=== PATIENT | male | born 1990 | race Caucasian/White ===

== ENCOUNTER 2024-07-08 08:05 | Emergency (ER) | payer BC, SELFPAY ==
[2024-07-08 08:08] VITALS: BP 157/99
--- NOTE | 2024-07-08 08:33 | ED.GENMED ---
History of Present Illness
General
Chief Complaint: Eye Problems
Source: patient
Exam Limitations: none
Time Seen by Provider: 07/08/24 08:22
Nursing documentation reviewed up to this point in time: agreed with
History of Present Illness
History of Present Illness:
33-year-old male with a history of GERD/gastritis presents for left eye irritation and pain and foreign body sensation after accidentally being struck in the left eye by a branch. 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 Patient says this occurred yesterday and
he irrigated his eye and he felt better for the rest of the day until evening when he started having some irritation and clear tearing. He has mild photophobia this morning, redness, clear tearing and the foreign body sensation. He has tried to
flush out his eye several times. He was not working with metal or wearing eye protection. He does not use contact lenses or glasses
Past History
Past History
ED Past Medical History: GERD
Social History
Tobacco: Non-smoker
Alcohol: None
Review of Systems
Review of Systems
Allergies reviewed?: Yes
All Other Systems: Not applicable
Phy Exam
Physical Exam
Physical Exam:
GENERAL: Alert , in no apparent distress
EYE: pupils equal and reactive, conjunctiva mildly injected, some clear tearing, flipped both eyelids and no foreign bodies visualized, tetracaine applied, fluorescein stain uptake to the eye 1 mm area of abrasion over the inferior cornea at 6:00
just inferior to the pupillary axis, there is no rust ring, EOMs are intact, no corneal ulcerations, no significant tearing
20/25 vision
pupils equal
no hyphema
NECK: Supple
ENT: o/p clr, mmm.
CARDIAC: Regular rate and rhythm .
LUNGS: Clear breath sounds bilaterally, no acute respiratory distress, no wheezes/rales/rhonchi
NEUROLOGICAL: Alert and oriented, no focal neuro deficits
SKIN: Warm and dry, skin intact.
PSYCH: Normal and appropriate interaction.
Course
Orders/Labs/Results
Orders:
Orders
07/08/24 08:26
Tetracaine HCl [Tetracaine 0.5% Ophthalmic Solution] 1 drop .ROUTE .STK-MED ONE
07/08/24 08:31
Erythromycin (Ilotycin) [Erythromycin 0.5% Ophthalmic Ointment] See Dose Instructions OPHTH NOW STA
Vital Signs
Initial and Last Documented VS:
Initial Vital Signs
Temp Pulse Resp BP Pulse Ox
98.7 F 66 18 157/99 100
07/08/24 08:08 07/08/24 08:08 07/08/24 08:08 07/08/24 08:08 07/08/24 08:08
Last Documented Vital Signs
Temp Pulse Resp BP Pulse Ox
98.7 F 62 16 136/93 98
07/08/24 08:08 07/08/24 09:11 07/08/24 09:11 07/08/24 09:11 07/08/24 09:11
MDM/Problems Addressed
Differential Diagnosis Includes:
corneal abrasion, ulceration,, fb
MDM/Problems Addressed:
33 y/o M got hit in the eye with a piece of wood/stick yesterday
washed out with water but still has fb sensation
no vision changes
clear tearing
borderline photophobia
obvious small corneal abrasion lower cornea without fb retained
flipped both lids without fb
no contact lenses
erythromycin ointment
motrin
eye f/u
return preautins.
*Critical Care Note
Total Time (30-74mins, 75-104mins- exclusive of procedures): Not Applicable
ED Attending Note
-
Portions of this chart may have been created with voice recognition software.� Occasional wrong word or��sound alike� substitutions may have occurred due to the inherent limitations of voice recognition software.
Discharge Plan
Departure
Patient Disposition: Home (Routine Discharge)
Date of Disposition: 07/08/24
Time of Disposition: 08:38
Patient with high blood pressure during this ER visit?: Yes
Condition: Fair
Covid-19: Not Applicable
Discharge Problem:
Abrasion, corneal
Instructions: Corneal Abrasion (DC)
Prescriptions:
New
erythromycin 5 mg/gram (0.5 %) ointment
0.5 inch ophthalmic (eye) QID 7 Days Qty: 3.5 0RF
Rx Instructions:
apply to left eye 4 times a day for 7 days
Referrals:
Jason Mckeon MD [Active] - Follow up in 2-3 days
Activity Restrictions/Additional Instructions:
You have a scratch over your inferior part of your cornea which is small and should heal on its own but you should apply the ointment 4 times a day for 7 days. You should follow-up with an eye doctor. Your symptoms should improve in 48 hours. Use
sunglasses when you are outside or in bright lights. Take Tylenol or ibuprofen for pain. Your blood pressure was mildly elevated, make sure to have this repeated at home
Hi Carlene
Interventions
Interventions:
*Risk Screen - Suicide Last Done: 07/08/24 08:53
*General Assessment Last Done: 07/08/24 08:53
*Neglect/Abuse Screening Last Done: 07/08/24 08:53
ED- Fall Risk Assessment Last Done: 07/08/24 08:53
*ED COVID-19 Vaccine History Last Done: 07/08/24 08:53
*Nursing Disposition Last Done: 07/08/24 09:12
Discharge Date and Time
Discharge Date/Time: 07/08/24 09:12
Print Language: ITALIAN
[2024-07-08] MEDS: ERYTHROMYCIN 0.5% OPHTHALMIC OINTMENT 1 APPLIC OPHTH (08:44)
[2024-07-08 09:11] VITALS: BP 136/93
== END 2024-07-08 09:12 | disposition home or self-care (01) ==
LOC: EMR 08:05
PROVIDERS: EMERGENCY PHYSICIAN Emergency Medicine
DX: S05.02XA Injury of conjunctiva and corneal abrasion without foreign body, left eye, initial encounter (principal); W22.8XXA Striking against or struck by other objects, initial encounter; R03.0 Elevated blood-pressure reading, without diagnosis of hypertension
CPT/HCPCS: 99283